=== PATIENT | female | born 1995 | race Hispanic/Latino ===

== ENCOUNTER → 2017-01-25 | Outpatient (CLI) | payer OTHER, SELFPAY ==
[2017-01-25 14:32] LABS: MEAN CORPUSCULAR HEMOGLOBIN 26.5 pg (27.0-33.0); MEAN CORPUSCULAR HGB CONC 32.3 g/dl (32.0-36.5); PLATELET COUNT, AUTOMATED 310 10^3/uL (150-450); RED CELL DISTRIBUTION WIDTH 13.6 % (11.5-14.5); WHITE BLOOD COUNT 10.9 10^3/uL (4.0-10.0)
== END ==
LOC: M LAB 12:46
PROVIDERS: ATTEND Advanced Practice Midwife
DX: Z3A.26 26 weeks gestation of pregnancy (principal)

== ENCOUNTER → 2017-03-22 | Outpatient (REF) | payer OTHER | LOC: M LAB REF 13:06 | DX: Z34.83 Encounter for supervision of other normal pregnancy, third trimester (principal) ==

== ENCOUNTER 2017-04-11 03:57 | Inpatient (IN) | payer OTHER ==
[2017-04-11] MEDS ORDERED: LR 1,000 ML IV (04:45)
[2017-04-11] MEDS: LACTATED RINGER'S 1000 ML IV (05:11)
[2017-04-11 05:33] LABS: HEMATOCRIT 35.1 % (36.0-47.0); HEMOGLOBIN 11.5 g/dl (12.0-16.0); MEAN CORPUSCULAR HGB CONC 32.8 g/dl (32.0-36.5); MEAN CORPUSCULAR VOLUME 79.2 fl (80.0-96.0); PLATELET COUNT, AUTOMATED 270 10^3/uL (150-450); RED BLOOD COUNT 4.43 10^6/uL (4.00-5.40); RED CELL DISTRIBUTION WIDTH 18.9 % (11.5-14.5); WHITE BLOOD COUNT 8.3 10^3/uL (4.0-10.0)
[2017-04-11] MEDS: LR 1,000 ML IV ×2 (10:26→17:35)
[2017-04-11] MEDS: OXYTOCIN DRIP 30 UNITS in APPROPRIATE DILUENT 1 EA IV ×2 (10:26→18:31)
[2017-04-11] MEDS: BUTORPHANOL 2 MG/ML INJ (J0595) IV (17:38)
[2017-04-11] MEDS ORDERED: DOCUSATE SODIUM 100 MG CAP PO (18:45)
[2017-04-11] MEDS ORDERED: DIBUCAINE 1% OINTMENT 30GM TOP (18:45)
[2017-04-11] MEDS ORDERED: MEASLES,MUMPS,RUBELLA VACCINE INJ (MMR-II) (90707) SC (18:45)
[2017-04-11] MEDS ORDERED: METHYLERGONOVINE MALEATE 0.2 MG TAB PO (18:45)
[2017-04-11] MEDS: LIDOCAINE 1% MDV INJ 50 ML VIAL INFIL (18:45)
[2017-04-11] MEDS ORDERED: RHOGAM 300 MCG (1500 IU) INJ (J2790) IM (18:45)
[2017-04-12] MEDS: metroNIDAZOLE (FLAGYL) 500 MG TAB PO ×3 (02:30→20:30)
[2017-04-12] MEDS: PRENATAL VITAMINS CHEWABLE TABLET PO (09:37)
[2017-04-12] MEDS: IBUPROFEN 800 MG TAB PO (09:37)
[2017-04-12] MEDS: ACETAMINOPHEN 500 MG TAB PO (20:29)
[2017-04-13] MEDS: PRENATAL VITAMINS CHEWABLE TABLET PO (09:06)
[2017-04-13] MEDS: metroNIDAZOLE (FLAGYL) 500 MG TAB PO (09:06)
[2017-04-13] MEDS: IBUPROFEN 800 MG TAB PO (09:07)
== END 2017-04-13 12:15 | disposition home or self-care (01) | DRG 775 ==
LOC: M LDO 03:57 → M LDI 04:33 → M OBS 20:40
PROVIDERS: Obstetrics & Gynecology
PROC: 10E0XZZ Delivery of Products of Conception, External Approach (ICD-10-PCS; principal; 2017-04-11)
PROC: 0HQ9XZZ Repair Perineum Skin, External Approach (ICD-10-PCS; 2017-04-11)
PROC: 10907ZC Drainage of Amniotic Fluid, Therapeutic from Products of Conception, Via Natural or Artificial Opening (ICD-10-PCS; 2017-04-11)
DX: O70.0 First degree perineal laceration during delivery (principal); Z3A.38 38 weeks gestation of pregnancy; Z37.0 Single live birth